=== PATIENT | male | born 1995 | race Caucasian/White ===

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

== ENCOUNTER 2020-08-23 23:17 | Emergency (ER) | payer OTHER ==
[~2020-08-23] VITALS: Ht 177.8 cm; Wt 75.0 kg
[2020-08-23] MEDS ORDERED: OMEP-218 PO (23:31)
[2020-08-24] MEDS ORDERED: KETOROLAC 60MG 2ML VIAL IM ONE (01:55)
[2020-08-24 02:15] VITALS: BP 144/56
== END 2020-08-24 02:53 | disposition home or self-care (01) ==
LOC: M ED 23:17
DX: S40.211A Abrasion of right shoulder, initial encounter (principal); M79.10 Myalgia, unspecified site; V43.62XA Car passenger injured in collision with other type car in traffic accident, initial encounter; Y92.9 Unspecified place or not applicable; Y93.9 Activity, unspecified; Y99.9 Unspecified external cause status; F17.200 Nicotine dependence, unspecified, uncomplicated; F12.10 Cannabis abuse, uncomplicated
CPT/HCPCS: 96372; 99284; J1885

== ENCOUNTER → 2023-01-20 | Outpatient (CLI) | payer OTHER ==
[~2023-01-20] MED LIST: OMEP-173 PO
== END ==
LOC: M PAIN 08:00
PROVIDERS: ATTEND Nurse Practitioner Family
DX: M79.10 Myalgia, unspecified site (principal); G89.29 Other chronic pain; F17.210 Nicotine dependence, cigarettes, uncomplicated; Z79.899 Other long term (current) drug therapy

== ENCOUNTER → 2023-05-18 | Outpatient (CLI) | payer OTHER | LOC: M PAIN 14:30 | PROVIDERS: ATTEND Anesthesiology | DX: M54.50 Low back pain, unspecified (principal); M47.816 Spondylosis without myelopathy or radiculopathy, lumbar region; F17.200 Nicotine dependence, unspecified, uncomplicated; Z79.899 Other long term (current) drug therapy ==

== ENCOUNTER → 2023-06-08 | Outpatient (CLI) | payer OTHER | LOC: M PLAIMG 15:45 | PROVIDERS: ATTEND Anesthesiology | DX: M47.816 Spondylosis without myelopathy or radiculopathy, lumbar region (principal) ==